=== PATIENT | female | born 1980 | race Caucasian/White ===

== ENCOUNTER 2022-02-04 15:03 | Emergency (ER) | payer MEDICAID ==
[~2022-02-04] VITALS: Ht 160 cm; Wt 87.7 kg
[2022-02-04 15:09] VITALS: BP 148/89
--- NOTE | 2022-02-04 15:40 | NUR ---
DR. ABEL BEDSIDE EVALUATING PT
[2022-02-04] MEDS ORDERED: KETOROLAC 30 MG/ML VIAL IM ONE (15:45)
--- NOTE | 2022-02-04 15:45 | NUR ---
41Y FEMALE WITH C/O VAGINAL PAIN & RIGHT GROIN PAIN X 2 DAYS. PATIENT GAVE X6 DAYS AGO & STILL EXPERINCING VAGINAL BLEEDING. PER PATIENT "SHE IS HAVING BRIGHT RED BLOOD, BUT DENIES CLOTS, AND IS SATURATING 3 PADS A DAY." PT IS AMBULATORY, BUT STATED "HER R LEG FEELS HEAVY AND MAKING IT HARD FOR HER TO WALK." PAIN IS CURRENTLY 10/10 AND MAINLY FELT IN THE R GROIN/VAGINAL REGION. BILATERAL EDEMA NOTED IN PATIENT ANKLE/FEET. PT A&OX4, DENIES CP/SOB, FEVER/CHILLS. PMH: DM IN NK[facility]
--- NOTE | 2022-02-04 16:19 | NUR ---
URINE WALKED TO LAB AND HANDED TO EDITH
--- NOTE | 2022-02-04 16:19 | NUR ---
ULTRASOUND AT PATIENT BEDSIDE
[2022-02-04 16:41] LABS: APPEARANCE,URINE CLEAR (CLEAR); BILIRUBIN,URINE NEGATIVE (NEGATIVE); BLOOD, URINE 3+ (NEGATIVE); COLOR,URINE YELLOW (YELLOW); LEUKOCYTE ESTERASE ,URINE 2+ (NEGATIVE); NITRITE, URINE NEGATIVE (NEGATIVE); UGLUCOSE NEGATIVE (NEGATIVE)
[2022-02-04 16:45] LABS: RBC,URINE 80-100 /HPF (0-5); WBC,URINE 60-80 /HPF (0-5)
--- NOTE | 2022-02-04 17:49 | NUR ---
Patient appears to be resting comfortably in bed. Vital Signs within normal limits. Respirations even and unlabored.
--- NOTE | 2022-02-04 17:51 | NUR ---
Female [employer] MARY LUCIANO accompanied DR. ABEL FOR female patient for Pelvic Exam.
[2022-02-04] MEDS ORDERED: IBUP-2213 PO (17:54)
[2022-02-04] MEDS ORDERED: DOCU-299 PO (17:54)
[2022-02-04] MEDS ORDERED: HYDR-5080 PO ×3 (17:54→18:07)
[2022-02-04] MEDS ORDERED: CEPH500C16 PO (17:54)
[2022-02-04 17:59] LABS: BASOPHILS % (AUTO) 0.3 % (0.0-2.0); EOSINOPHILS # (AUTO) 0.1 K/uL (0-0.4); EOSINOPHILS % (AUTO) 1.3 % (0.0-4.0); HEMOGLOBIN 10.5 g/dL (12.0-16.0); LYMPHOCYTES # (AUTO) 1.9 K/uL (2.5-16.5); LYMPHOCYTES % (AUTO) 19.3 % (20.5-51.1); MEAN CORPUSCULAR HEMOGLOBIN 34 pg (27-31); MEAN CORPUSCULAR HGB CONC 35 g/dL (33-37); MEAN CORPUSCULAR VOLUME 96.7 fL (80-94); MONOCYTES # (AUTO) 0.9 K/uL (0.8-1.0); MONOCYTES % (AUTO) 9.7 % (1.7-9.3); NEUTROPHILS # (AUTO) 6.7 K/uL (1.8-7.7); NEUTROPHILS % (AUTO) 69.4 % (42.2-75.2); PLATELET COUNT (AUTO) 312 K/uL (140-450); WHITE BLOOD COUNT (AUTO) 9.6 K/uL (4.8-10.8)
[2022-02-04 18:22] LABS: ALBUMIN 2.3 g/dL (3.4-5.0); ANION GAP 14.6 (8-16); CARBON DIOXIDE 24.4 mmol/L (21-32); CREATININE 0.6 mg/dL (0.6-1.3); TOTAL BILIRUBIN 0.3 mg/dL (0.0-1.0)
[2022-02-04 18:32] VITALS: BP 126/69
--- NOTE | 2022-02-04 18:32 | NUR ---
Patient discharged with v/s stable. Written and verbal after care instructions given and explained. Patient alert, oriented and verbalized understanding of instructions. Ambulatory with steady gait. All questions addressed prior to discharge. ID band removed. Patient advised to follow up with PMD. Rx of KEFLEX, COLACE, AND IBUPROFEN given. Patient educated on indication of medication including possible reaction and side effects. Opportunity to ask questions provided and answered.
[2022-02-05] MEDS ORDERED: ACET-8386 PO (15:43)
[2022-02-05] MEDS ORDERED: CEPH500C16 PO (15:45)
[2022-02-05] MEDS ORDERED: IBUP-2213 PO (15:45)
[2022-02-05] MEDS ORDERED: DOCU-299 PO (15:45)
== END 2022-02-04 18:32 | disposition home or self-care (01) ==
LOC: MED 15:03
DX: O86.20 Urinary tract infection following delivery, unspecified (principal); O90.89 Other complications of the puerperium, not elsewhere classified; R10.2 Pelvic and perineal pain; Z79.899 Other long term (current) drug therapy
CPT/HCPCS: 36415; 76856; 80053; 81001; 81025; 85025; 87086; 96372; 99284; J1885; Q0092